=== PATIENT | male | born 2000 | race Caucasian/White ===

== ENCOUNTER 2022-09-19 12:33 | Emergency (ER) | payer BC ==
[2022-09-19 13:17] LABS: Absolute Lymphocytes (CBC) 1.4 K/uL (0.7-4.9); Hematocrit 38.6 % (39.6-49.0); Lymphocytes % 15.2 % (15.3-44.8); MCV 83.8 fL (80-100); MPV 7.6 fL (7.6-11.3); RBC Red Blood Cell Count 4.61 M/uL (4.33-5.43)
[2022-09-19 13:34] LABS: Albumin 3.6 g/dL (3.4-5.0); Bilirubin Total 0.4 mg/dL (0.2-1.0); Potassium 3.9 mEq/L (3.5-5.1); Protein, Total 8.6 g/dL (6.4-8.2)
--- NOTE | 2022-09-19 14:18 | RAD REPORT ---
EXAM DESCRIPTION: CT - Abdomen Pelvis W Contrast - 09/19/2022 1:56 pm CLINICAL HISTORY: ABD PAIN COMPARISON: Scrotum Testicles dated 09/19/2022 TECHNIQUE: Thin cut axial CT imaging of the abdomen and pelvis was performed following intravenous a dministration of 100 mL Isovue 300. Multiplanar reformats were generated and reviewed. All CT scans are performed using dose optimization technique as appropriate and may include automated exposure control or mA/KV adjustment according to patient size. FINDINGS: Ovoid solid 6 millimeter peripheral right lower lobe nodule, nonspecific The liver, spleen, and pancreas show no suspicious findings. Gallbladder and biliary tree are also wi thout suspicious finding. Symmetric renal function is seen with no hydronephrosis or suspicious renal mass. No dilated bowel loops or bowel wall thickening. No free air, free fluid or inflammatory stranding. N o hernia, mass or bulky lymphadenopathy. The urinary bladder is without significant finding. No suspicious bony findings. Engorgement of the left pampiniform plexus. Please refer to dedicated evaluation of the scrotum on ul trasound performed on the same day. IMPRESSION: No acute intra-abdominal process. Engorgement of the left pampiniform plexus. Please refer to dedicated evaluation of the scrotum on ul trasound performed on the same day.
--- NOTE | 2022-09-19 15:21 | RAD REPORT ---
EXAM DESCRIPTION: US - Scrotum Testicles - 09/19/2022 1:54 pm CLINICAL HISTORY: testicular pain COMPARISON: Abdomen Pelvis W Contrast dated 09/19/2022 TECHNIQUE: Sonographic grayscale and color flow images of the scrotum were obtained. FINDINGS: The right testicle measures 3.8 x 2.2 x 2.5 centimeter. No intratesticular masses or evide nce of testicular torsion. The left testicle measures 3.3 x 1.9 x 2.7 centimeter. No intratesticular masses or evidence of testi cular torsion. Swelling and hypervascularity involving the body of the epididymis. Hypervascularity extending latera lly probably involving the pampiniform plexus, with a few nondistended veins showing absent flow on t he color duplex images. Small left hydrocele. Small bilateral epididymal head cysts, the largest on the right measuring 7 mil limeter. IMPRESSION: Inflammatory changes along the body of the epididymis, with probable changes of thrombop hlebitis involving the adjacent pampiniform plexus as well. No findings to suggest orchitis or testicular torsion. The findings were communicated to Anais Orellana on 09/19/2022 at 15:08 hours.
--- NOTE | 2022-09-19 15:31 | ER ---
Nurse's Notes [facility] Name: Hussain Mitchell Age: 21 yrs Sex: Male : 2000 Arrival Date: 09/19/2022 Time: 12:36 Bed 9 Private MD: Diagnosis: Epididymitis Presentation: 09/19 12:43 Chief complaint: Patient states: he started having left testicular pain Saturday ap3 09/14/2022. he woke up this morning and the pain was radiating into his left lower abdomen. patient currently rates his pain 10/10 on the pain scale. patient denies NVD. Coronavirus screen: At this time, the client does not indicate any symptoms associated with coronavirus-19. Ebola Screen: No symptoms or risks identified at this time. Initial Sepsis Screen: Does the patient meet any 2 criteria? No. Patient's initial sepsis screen is negative. Does the patient have a suspected source of infection?. Risk Assessment: Do you want to hurt yourself or someone else? Patient reports no desire to harm self or others. Onset of symptoms was September 14, 2022. 12:43 Method Of Arrival: Ambulatory ap3 12:43 Acuity: BEATRICE 3 ap3 Triage Assessment: 12:46 General: Appears in no apparent distress. Behavior is calm, cooperative. Pain: ap3 Complains of pain in left testicle Pain radiates to left lower quadrant Pain currently is 10 out of 10 on a pain scale. Pain began gradually. Neuro: Level of Consciousness is awake, alert, obeys commands, Oriented to person, place, time, situation. Respiratory: Airway is patent Respiratory effort is even, unlabored, Respiratory pattern is regular, symmetrical. GI: Patient currently denies nausea, vomiting. Historical: - Allergies: 12:45 No Known Allergies; ap3 - Home Meds: 12:45 None [Active]; ap3 - PMHx: 12:45 None; ap3 - Immunization history:: Client reports having NOT received the Covid vaccine. Flu vaccine is not up to date. - Social history:: Smoking status: Reported history of juuling and/or vaping. Patient uses alcohol, only on a social basis. Screenin:47 [facility] ED Fall Risk Assessment (Adult) History of falling in the last 3 months, ap3 including since admission No falls in past 3 months (0 pts). Abuse screen: Denies threats or abuse. Nutritional screening: No deficits noted. Tuberculosis screening: No symptoms or risk factors identified. Assessment: 13:03 GI: Abd is soft Abdomen is tender to palpation in left lower quadrant. ap3 13:15 General: See triage assessment. hb 14:35 Reassessment: Patient appears in no apparent distress at this time. Patient and/or hb family updated on plan of care and expected duration. Pain level reassessed. Patient is alert, oriented x 3, equal unlabored respirations, skin warm/dry/pink. Vital Signs: 12:43 BP 123 / 74; Pulse 76; Resp 19; Temp 99; Pulse Ox 100% ; Weight 68.04 kg; Height 5 ft. ap3 8 in. ; Pain 10/10; 14:00 BP 126 / 76; Pulse 72; Resp 16; Pulse Ox 99% ; hb 12:43 Body Mass Index 22.81 (68.04 kg, 172.72 cm) ap3 12:43 Pain Scale: Adult ap3 ED Course: 12:36 Patient arrived in ED. mr 12:37 Kimberley Hollis, CLOTILDE is PHCP. kb 12:37 José Foss MD is Attending Physician. kb 12:45 Triage completed. ap3 12:47 Arm band placed on right wrist. ap3 13:02 Inserted saline lock: 20 gauge in right antecubital area, using aseptic technique. ap3 Blood collected. 13:03 Patient has correct armband on for positive identification. Bed in low position. Call ap3 light in reach. Side rails up X 1. Pulse ox on. NIBP on. Door closed. Noise minimized. 13:48 US Scrotum Testicles In Process Unspecified. EDMS 13:58 CT Abd/Pelvis - IV Contrast Only In Process Unspecified. EDMS 15:29 Claudia Blackwood, AGUSTIN is Primary Nurse. ss 15:54 No provider procedures requiring assistance completed. IV discontinued, intact, ss bleeding controlled, No redness/swelling at site. Pressure dressing applied. Administered Medications: 15:53 Drug: AZITHromycin PO 1 grams Route: PO; ss 16:13 Follow up: Response: No adverse reaction ss 15:54 Drug: Rocephin (cefTRIAXone) IM 500 mg Route: IM; Site: right gluteus; ss 16:13 Follow up: Response: No adverse reaction ss Medication: 14:36 VIS not applicable for this client. hb Outcome: 15:30 Discharge ordered by MD. parker 15:54 Discharged to home ambulatory. 15:54 Condition: good 16:14 Discharge instructions given to patient, Instructed on discharge instructions, follow ss up and referral plans. medication usage, Demonstrated understanding of instructions, follow-up care, medications. 16:15 Patient left the ED. Signatures: Dispatcher [employer] EDNV Kimberley Hollis, PRODUCT MANAGEMENT ANALYST-C PRODUCT MANAGEMENT ANALYST-Kit DysonaKaren mr Claudia Blackwood RN RN Kayleigh Uriaret, RN RN Karma Marvin RN RN ap3
--- NOTE | 2022-09-19 15:31 | EDPHYS ---
Physician Documentation [facility] Name: Hussain Mitchell Age: 21 yrs Sex: Male : 2000 Arrival Date: 09/19/2022 Time: 12:36 Bed 9 Private MD: ED Physician José Foss HPI: 09/19 15:25 This 21 yrs old Male presents to ER via Ambulatory with complaints of Abdominal Pain, kb Groin Pain. 15:25 The patient presents with scrotal pain, of the left side, swelling, tenderness. Onset: kb The symptoms/episode began/occurred 6 day(s) ago. Modifying factors: The symptoms are alleviated by nothing, the symptoms are aggravated by nothing. Associated signs and symptoms: Pertinent positives: abdominal pain, Pertinent negatives: constipation, diarrhea, dysuria, fever, hematuria, nausea, vomiting. Severity of symptoms: At their worst the symptoms were mild, moderate, in the emergency department the symptoms are unchanged. The patient has not experienced similar symptoms in the past. The patient has not recently seen a physician. Historical: - Allergies: 12:45 No Known Allergies; ap3 - Home Meds: 12:45 None [Active]; ap3 - PMHx: 12:45 None; ap3 - Immunization history:: Client reports having NOT received the Covid vaccine. Flu vaccine is not up to date. - Social history:: Smoking status: Reported history of juuling and/or vaping. Patient uses alcohol, only on a social basis. ROS: 15:25 Constitutional: Negative for fever, chills, and weight loss. kb 15:25 : Positive for testicular pain 15:25 All other systems are negative. Exam: 15:25 Constitutional: This is a well developed, well nourished patient who is awake, alert, kb and in no acute distress. Head/Face: Normocephalic, atraumatic. ENT: Moist Mucous membranes Cardiovascular: Regular rate and rhythm with a normal S1 and S2. No gallops, murmurs, or rubs. No pulse deficits. Respiratory: Respirations even and unlabored. No increased work of breathing. Talking in full sentences Skin: Warm, dry with normal turgor. Normal color. MS/ Extremity: Pulses equal, no cyanosis. Neurovascular intact. Full, normal range of motion. Neuro: Awake and alert, GCS 15, oriented to person, place, time, and situation. Moves all extremities. Normal gait. 15:25 Abdomen/GI: Inspection: abdomen appears normal, Bowel sounds: normal, Palpation: soft, in all quadrants, mild abdominal tenderness, in the left upper quadrant and left lower quadrant. Vital Signs: 12:43 BP 123 / 74; Pulse 76; Resp 19; Temp 99; Pulse Ox 100% ; Weight 68.04 kg; Height 5 ft. ap3 8 in. ; Pain 10/10; 14:00 BP 126 / 76; Pulse 72; Resp 16; Pulse Ox 99% ; hb 12:43 Body Mass Index 22.81 (68.04 kg, 172.72 cm) ap3 12:43 Pain Scale: Adult ap3 MDM: 12:51 Patient medically screened. kb 15:09 Discussion of test interpretation with radiology: I had a discussion with radiology snw regarding a test interpretation. Discussed US results with Dr. Lopez. Epididymitis.. 15:25 Data reviewed: vital signs, nurses notes. kb 15:26 Differential diagnosis: Hydrocele, testicular torsion, epididymitis, diverticulitis, kb kidney stone, UTI. Counseling: I had a detailed discussion with the patient and/or guardian regarding: the historical points, exam findings, and any diagnostic results supporting the discharge/admit diagnosis, lab results, radiology results, the need for outpatient follow up, a family practitioner, a urologist, to return to the emergency department if symptoms worsen or persist or if there are any questions or concerns that arise at home. 09/19 12:51 Order name: CBC with Diff; Complete Time: 13:26 kb 09/19 12:51 Order name: CMP; Complete Time: 13:36 kb 09/19 12:51 Order name: Lipase; Complete Time: 13:36 kb 09/19 12:51 Order name: CT Abd/Pelvis - IV Contrast Only; Complete Time: 14:20 kb 09/19 12:51 Order name: US Scrotum Testicles; Complete Time: 15:24 kb 09/19 12:51 Order name: IV Saline Lock; Complete Time: 13:02 kb 09/19 12:51 Order name: Labs collected and sent; Complete Time: 13:02 kb Administered Medications: 15:53 Drug: AZITHromycin PO 1 grams Route: PO; ss 16:13 Follow up: Response: No adverse reaction ss 15:54 Drug: Rocephin (cefTRIAXone) IM 500 mg Route: IM; Site: right gluteus; ss 16:13 Follow up: Response: No adverse reaction ss Disposition: 17:24 Co-signature as Attending Physician, José Foss MD I reviewed the patient's care rt provided by the Advanced Practice Provider and agree with the diagnosis and treatment plan. Disposition Summary: 09/19/22 15:30 Discharge Ordered Location: Home kb Condition: Stable kb Diagnosis - Epididymitis kb Followup: kb - With: Emergency Department - When: As needed - Reason: Worsening of condition Followup: kb - With: Private Physician - When: 2 - 3 days - Reason: Recheck today's complaints, Continuance of care, Re-evaluation by your physician Discharge Instructions: - Discharge Summary Sheet kb - Epididymitis kb Forms: - Medication Reconciliation Form kb - Thank You Letter kb - Antibiotic Education kb - Prescription Opioid Use kb Prescriptions: - Doxycycline Hyclate 100 mg Oral Tablet - take 1 tablet by ORAL route every 12 hours; 20 tablet; Refills: 0, Product kb Selection Permitted Signatures: Dispatcher [employer] Kimberley Mariscal, BUS WASHER-C BUS WASHER-Ckb Anais Orellana BUS WASHER-C BUS WASHER-Csnw Claudia Blackwood RN RN ss Karma Marvin RN RN ap3 José Foss MD MD rt
[2022-09-19] MEDS ORDERED: CEFTRIAXONE 500 MG/VIAL ONE (15:49)
[2022-09-19] MEDS ORDERED: WATER FOR INJ,STERILE 10 ML ONE (15:49)
[2022-09-19] MEDS ORDERED: AZITHROMYCIN 250 MG TAB ONE (15:49)
[2022-09-19 16:19] VITALS: TEMP 99
[2022-09-19 16:20] VITALS: BP 126/76; O2SAT 99
== END 2022-09-19 16:15 | disposition home or self-care (01) ==
LOC: ER 12:33
DX: N45.1 Epididymitis (principal)
CPT/HCPCS: 85025; 36415; 83690; 80053; 74177; 76870; Q9967